=== PATIENT | female | born 1950 | race Caucasian/White ===

== ENCOUNTER 2018-03-02 13:06 | Emergency (ER) | payer MEDICARE ==
[2018-03-02] MEDS ORDERED: Albuterol/Ipratropium NEB.SOL* Albuterol 2.5 MG/Ipratropium 0.5 MG 3 ML INH ONE (16:34)
--- NOTE | 2018-03-02 16:41 | ED ---
Respiratory - HPI Summary HPI Summary: 67 year old female presents with 1 day history of headache, sinus pressure, chills, SOB, wheezing, and non-productive cough. Denies fever, ear pain, sore throat, chest pain, abdominal pain, nausea, or vomiting. Reports she has smoked 1 PPD for her entire adult life. - History of Current Complaint Stated Complaint: SINUS COMPLAINT Time Seen by Provider: 03/02/18 16:27 Hx Obtained From: Patient Onset/Duration: Gradual Onset, Lasting Days - 1 Current Severity: Moderate Character: Wheezing, Cough (Nonproductive), Dyspnea at Rest Sputum Amount: None Alleviating Factor(s): Nothing Associated Signs and Symptoms: SOB, Wheezing, Chills, Dyspnea, Sinus Discomfort - Allergy/Home Medications Allergies/Adverse Reactions: Allergies Allergy/AdvReac Type Severity Reaction Status Date / Time MS Pseudoephedrine Allergy See Comment Verified 05/09/15 15:56 [Pseudoephedrine] PMH/Surg Hx/FS Hx/Imm Hx Endocrine/Hematology History: Denies: Hx Diabetes, Hx Thyroid Disease Cardiovascular History: Reports: Hx Hypercholesterolemia, Hx Hypertension Denies: Hx Atrial Fibrillation, Hx Cardiomegaly, Hx Congenital Heart Disease , Hx Coronary Artery Disease Respiratory History: Reports: Hx Asthma Denies: Hx Chronic Obstructive Pulmonary Disease (COPD) GI History: Denies: Hx Ulcer Musculoskeletal History: Denies: Hx Osteoporosis - Cancer History Hx Chemotherapy: No Hx Radiation Therapy: No - Surgical History Surgery Procedure, Year, and Place: rt hip replacement 2007, bladder lift, hysterectomy Infectious Disease History: Reports: Hx Hepatitis Denies: Hx Clostridium Difficile, Hx Human Immunodeficiency Virus (HIV), Hx of Known/Suspected MRSA, Hx Shingles, Hx Tuberculosis, Hx Known/Suspected VRE, Hx Known/Suspected VRSA, History Other Infectious Disease, Traveled Outside the [place] in Last 30 Days - Family History Known Family History: Positive: Unknown - Social History Occupation: Retired Lives: With Family Alcohol Use: None Substance Use Type: Reports: None Smoking Status (MU): Heavy Every Day Tobacco Smoker Type: Cigarettes Amount Used/How Often: ~ 1 ppd Length of Time of Smoking/Using Tobacco: ~ 35 years Review of Systems Positive: Fever, Chills, Fatigue Eyes: Negative Positive: Nasal Discharge, Other - Sinus pain and pressure Cardiovascular: Negative Positive: Shortness Of Breath, Cough, Other - Wheezing Gastrointestinal: Negative Genitourinary: Negative Skin: Negative All Other Systems Reviewed And Are Negative: Yes Physical Exam Triage Information Reviewed: Yes Vital Signs Reviewed: Yes Appearance: Positive: No Pain Distress, Ill-Appearing - Chronically, Obese Skin: Positive: Warm, Skin Color Reflects Adequate Perfusion, Dry Eyes: Positive: Conjunctiva Clear. Negative: Discharge ENT: Positive: Pharyngeal erythema - Mild with postnasal drip, Nasal congestion , Nasal drainage, TMs normal, Sinus tenderness - Frontal. Negative: Tonsillar swelling, Tonsillar exudate Neck: Positive: Supple, Nontender, No Lymphadenopathy Respiratory/Lung Sounds: Positive: Decreased Breath Sounds, Wheezes - Diffuse bilaterally, Other - Appears mild SOB. Able to speak in full sentences. Cardiovascular: Positive: RRR, S1, S2. Negative: Murmur, Rub Neurological: Positive: Alert, Oriented to Person Place, Time Psychiatric: Positive: Affect/Mood Appropriate Re-Evaluation - Re-Evaluation First Eval Re-Evaluation Time: 17:00 Comment: Post-nebulizer treatment patient states feels about the same. Continues to have scattered diffuse wheezing with slight improvement in air exchange. Patient encouraged to remain in clinic for serial treatments but states she would prefer to go home at this time. VSS. Disposition - Course Course Of Treatment: 67 year old female with 1 day history of sinus pain and pressure, SOB, and wheezing. Significant smoking history 1 PPD for majority of her life. Reports history of asthma however suspect this is more COPD considering her smoking history. She does not have any maintenance or rescue inhalers as she uses her significant others inhalers due to the cost. She had low grade fever in the clinic, mildly SOB, with diffuse wheezing. She was given a DuoNeb treatment in the clinic with slight improvement. It was recommended that she stay for serial treatments however patient declined. She has appointment with her PCP tomorrow therefore will start her on Augementin BID x 10 days and a prednisone taper. Encouraged to use the albuterol inhaler available to her as she will not fill a prescription for her own. - Differential Dx - Cardiopulmonary Differential Diagnoses - Cardiopulmonary: Acute Dyspnea, Bronchitis, Exacerbation Of COPD, Lower Resp Infection, Sinusitis - Diagnoses Provider Diagnoses: Acute frontal sinusitis, Asthma exacerbation in COPD Discharge - Sign-Out/Discharge Documenting (check all that apply): Patient Departure All imaging exams completed and their final reports reviewed: No Studies - Discharge Plan Condition: Stable Disposition: HOME Prescriptions: Amoxicillin/Clavulanate TAB* [Augmentin TAB 875*] 875 mg PO BID #20 tab predniSONE TAB* [Deltasone 10 MG TAB*] 10 mg PO DAILY #30 tab Patient Education Materials: Asthma (ED), Sinusitis (ED) Referrals: Erich Taylor MD [Primary Care Provider] - 1 Day (As scheduled.) Additional Instructions: Start Augmentin 1 tab twice daily for 10 days to treat your infection. Be sure to complete the entire course even if feeling better. Continue to use your Flonase nasal spray as directed. I would recommend using a saline rinse kit such as Netti Pot or NeilMed twice daily. Start prednisone taper today. Take 4 tabs once a day for 3 days, then 3 tabs daily for 3 days, then 2 tabs daily for 3 days, then 1 tab daily for 3 days, then stop. Continue to use the Ventolin inhaler 2 puffs every 4-6 hours as needed for shortness of breath or wheezing. Keep your appointment with your primary care provider tomorrow as scheduled. Seek immediate medical attention in the emergency room if you develop fever greater than 100.5 F, develop chest pain, worsening shortness of breath, you become weak or dizzy, feel like your heart is racing or skipping beats, or any worsening of symptoms. - Billing Disposition and Condition Condition: STABLE Disposition: Home
[2018-03-02 16:56] VITALS: BP 137/47
--- NOTE | 2018-03-03 22:24 | UC ---
- Progress Note Progress Note: Pt called stating that she has vomiting & diarrhea after 1 dose and has not taken since. -note reviewed, also on prednisone. -change to amox 875mgs po bid. common SE of augmentin are these. -she should take probiotic daily while on abx to help prevent c diff. - Re-Evaluation - Re-Evaluation First Eval Re-Evaluation Time: 17:00 Comment: Post-nebulizer treatment patient states feels about the same. Continues to have scattered diffuse wheezing with slight improvement in air exchange. Patient encouraged to remain in clinic for serial treatments but states she would prefer to go home at this time. VSS. Course/Dx - Diagnoses Provider Diagnoses: Acute frontal sinusitis, Asthma exacerbation in COPD Discharge - Sign-Out/Discharge Documenting (check all that apply): Post-Discharge Follow Up All imaging exams completed and their final reports reviewed: No Studies - Discharge Plan Condition: Stable Disposition: HOME Prescriptions: Amoxicillin PO (*) [Amoxicillin 875 MG (*)] 875 mg PO BID #20 tab predniSONE TAB* [Deltasone 10 MG TAB*] 10 mg PO DAILY #30 tab Patient Education Materials: Asthma (ED), Sinusitis (ED) Referrals: Erich Taylor MD [Primary Care Provider] - 1 Day (As scheduled.) Additional Instructions: Start Augmentin 1 tab twice daily for 10 days to treat your infection. Be sure to complete the entire course even if feeling better. Continue to use your Flonase nasal spray as directed. I would recommend using a saline rinse kit such as Netti Pot or NeilMed twice daily. Start prednisone taper today. Take 4 tabs once a day for 3 days, then 3 tabs daily for 3 days, then 2 tabs daily for 3 days, then 1 tab daily for 3 days, then stop. Continue to use the Ventolin inhaler 2 puffs every 4-6 hours as needed for shortness of breath or wheezing. Keep your appointment with your primary care provider tomorrow as scheduled. Seek immediate medical attention in the emergency room if you develop fever greater than 100.5 F, develop chest pain, worsening shortness of breath, you become weak or dizzy, feel like your heart is racing or skipping beats, or any worsening of symptoms. - Billing Disposition and Condition Condition: STABLE Disposition: Home
== END 2018-03-02 17:15 | disposition home or self-care (01) ==
LOC: UCCORT 13:06
DX: J45.901 Unspecified asthma with (acute) exacerbation (principal); J44.9 Chronic obstructive pulmonary disease, unspecified; F17.210 Nicotine dependence, cigarettes, uncomplicated; J01.10 Acute frontal sinusitis, unspecified
CPT/HCPCS: 99212; A9270-GY; G0463